=== PATIENT | female | born 1945 | race Caucasian/White ===

== ENCOUNTER → 2016-11-13 | Outpatient (CLI) | payer MEDICARE, OTHER ==
--- NOTE | 2016-11-14 10:06 | MM ---
Reason for exam: screening (asymptomatic). Last mammogram was performed 6 years and 8 months ago. History: Patient is postmenopausal. Family history of breast cancer in sister at age 59 and breast cancer in mother at age 80. Physical Findings: A clinical breast exam by your physician is recommended on an annual basis and results should be correlated with mammographic findings. MG 3D Screening Mammo W/Cad Bilateral CC and MLO view(s) were taken. Prior study comparison: March 06, 2010, bilateral digital screening mammogram. September 07, 2007, bilateral screening mammogram w/CAD. The breast tissue is extremely dense which could obscure a lesion on mammography. Focal asymmetry inner left breast CC view is stable. No significant changes when compared with prior studies. ASSESSMENT: Benign, BI-RAD 2 RECOMMENDATION: Routine screening mammogram of both breasts in 1 year.
== END | disposition home or self-care (01) ==
LOC: RADMAMWWP 11:12
PROVIDERS: ATTEND Family Medicine
DX: Z12.31 Encounter for screening mammogram for malignant neoplasm of breast (principal)
CPT/HCPCS: 77063; G0202

== ENCOUNTER → 2018-03-10 | Outpatient (CLI) | payer MEDICARE, OTHER ==
--- NOTE | 2018-03-11 11:24 | BD ---
EXAMINATION TYPE: Axial Bone Density DATE OF EXAM: 03/10/2018 CLINICAL HISTORY: Osteoporosis screening Height: 65.5 inches Weight: 150 FRAX RISK QUESTIONS: Alcohol (3 or more units per day): no Family History (Parent hip fracture): mother broke femur about mid-shaft when walking Glucocorticoids (More than 3mos): no (Ex: prednisone, prednisolone, methylprednisolone, dexamethasone, and hydrocortisone). History of Fracture in Adulthood: foot Secondary Osteoporosis: 1. Type 1 Diabetes: no 2. Hyperthyroidism: no 3. Menopause before 45: no 4. Malnutrition: no 5. Chronic liver disease: no Rheumatoid Arthritis: no Current Tobacco Use: no RISK FACTORS HISTORY OF: Family History of Osteoporosis: yes, mother Active: yes Diet low in dairy products/other sources of calcium: no Postmenopausal woman: yes Take estrogen and/or progesterone medications: no Lost more than 2 inches in height since high school: patient states height may have been about 67.5 i nches at one time Frequent falls: no Poor Health: no Hyperparathyroidism: no Adrenal Insufficiency: no MEDICATIONS: Prednisone or other steroids: no Thyroid Medications: no Osteoporosis Medications: no Additional Medications: blood pressure meds, multivitamin Additional History: EXAM MEASUREMENTS: Bone mineral densitometry was performed using the [employer] System. Bone mineral density as measured about the Lumbar spine is: ----- L1-L4(G/cm2): 0.965 T Score Values are as follows: ----- L2: -2.2 ----- L3: -1.2 ----- L4: -1.6 ----- L1-L4: -1.8 Bone mineral density not previously done at this facility; previously done at physician office Bone mineral density about the R hip (g/cm2): 0.713 Bone mineral density about the L hip (g/cm2): 0.711 T Score values are as follows: -----R Neck: -2.3 -----L Neck: -2.4 -----R Total: -2.1 -----L Total: -2.1 Bone mineral density not previously done at this facility; previously done at physician office IMPRESSION: Osteopenia (T Score between -2.5 and -1). Values approach osteoporosis with regards to the bilateral hips. There is slightly increased risk of fracture and the patient may be considered for treatment. Re-Screen 2-5 years. NOTE: T-SCORE=SD OF THE YOUNG ADULT MEAN.
--- NOTE | 2018-03-11 13:35 | MM ---
Reason for exam: screening (asymptomatic). Last mammogram was performed 1 year and 4 months ago. History: Patient is postmenopausal. Family history of breast cancer in sister at age 59 and breast cancer in mother at age 80. Physical Findings: A clinical breast exam by your physician is recommended on an annual basis and results should be correlated with mammographic findings. MG 3D Screening Mammo W/Cad Bilateral CC and MLO view(s) were taken. Prior study comparison: November 13, 2016, bilateral MG 3d screening mammo w/cad. March 06, 2010, bilateral digital screening mammogram. The breast tissue is extremely dense which could obscure a lesion on mammography. No suspicious abnormality. No significant changes when compared with prior studies. ASSESSMENT: Negative, BI-RAD 1 RECOMMENDATION: Routine screening mammogram of both breasts in 1 year.
== END | disposition home or self-care (01) ==
LOC: RADMAMWWP 12:14
PROVIDERS: ATTEND Family Medicine
DX: Z12.31 Encounter for screening mammogram for malignant neoplasm of breast (principal); M81.0 Age-related osteoporosis without current pathological fracture
CPT/HCPCS: 77063; 77067; 77080

== ENCOUNTER → 2021-01-08 | Outpatient (CLI) | payer MEDICARE, OTHER ==
--- NOTE | 2021-01-08 12:50 | US ---
EXAMINATION TYPE: US axilla RT DATE OF EXAM: 01/08/2021 COMPARISON: NONE CLINICAL HISTORY: 75-year-old female r22.2 mass, swelling. Palpable lymph node felt by patient in rig ht axilla. Overhauler notes: 2nd vaccine given January 03 TECHNIQUE: Targeted ultrasound examination of the right axilla the site of palpable abnormality. FINDINGS: Overhauler notes: Soft tissue scan of right axilla produced multiple lymph nodes. Largest = 1.2 x 1. 0 x 0.8cm, cortical thickness of 4 mm. IMPRESSION: Numerous mildly thickened, prominent but nonenlarged lymph nodes in the right axilla. Findings likely reactive, possibly even reactive to recent COVID vaccination. Recommend follow-up ultrasound in 6-8 weeks to reassess.
== END | disposition home or self-care (01) ==
LOC: RADUSWWP 07:40
PROVIDERS: ATTEND Family Medicine
DX: I89.8 Other specified noninfective disorders of lymphatic vessels and lymph nodes (principal)

== ENCOUNTER → 2021-01-08 | Outpatient (CLI) | payer MEDICARE, OTHER ==
--- NOTE | 2021-01-09 14:46 | MM ---
Reason for exam: screening (asymptomatic). Last mammogram was performed 2 years and 10 months ago. History: Patient is postmenopausal and history of other cancer. Family history of breast cancer in sister at age 59 and breast cancer in mother at age 80. Physical Findings: A clinical breast exam by your physician is recommended on an annual basis and results should be correlated with mammographic findings. MG 3D Screening Mammo W/Cad Bilateral CC and MLO view(s) were taken. Prior study comparison: March 10, 2018, bilateral MG 3d screening mammo w/cad. November 13, 2016, bilateral MG 3d screening mammo w/cad. The breast tissue is extremely dense which could obscure a lesion on mammography. There is no discrete abnormality. No significant changes when compared with prior studies. ASSESSMENT: Negative, BI-RAD 1 RECOMMENDATION: Routine screening mammogram of both breasts in 1 year.
== END | disposition home or self-care (01) ==
LOC: RADMAMWWP 07:37
PROVIDERS: ATTEND Family Medicine
DX: Z12.31 Encounter for screening mammogram for malignant neoplasm of breast (principal); Z78.0 Asymptomatic menopausal state; Z80.3 Family history of malignant neoplasm of breast
CPT/HCPCS: 77063; 77067

== ENCOUNTER → 2021-01-18 | Outpatient (CLI) | payer MEDICARE, OTHER ==
--- NOTE | 2021-01-20 13:42 | BD ---
EXAMINATION TYPE: Axial Bone Density DATE OF EXAM: 01/18/2021 COMPARISON: 03/10/2018 CLINICAL HISTORY: 75-year-old female post menopausal screening Height: 64.7 IN Weight: 147 LBS FRAX RISK QUESTIONS: History of Fracture in Adulthood: FINGER AGE 74 RISK FACTORS HISTORY OF: Family History of Osteoporosis: YES SISTER Active: YES Postmenopausal woman: AGE 60 MEDICATIONS: Additional Medications: GLUCOSAMINE CHONDROITIN, VIT D, CALCIUM, EXAM MEASUREMENTS: Bone mineral densitometry was performed using the [employer] System. Bone mineral density as measured about the Lumbar spine is: ----- L1-L4(G/cm2): 0.932 T Score Values are as follows: ----- L2: -2.0 ----- L3: -1.5 ----- L4: -2.2 ----- L1-L4: -2.1 Bone mineral density has: Decreased -2.9% since study of: 03/10/2018 Bone mineral density about the R hip (g/cm2): 0.701 Bone mineral density about the L hip (g/cm2): 0.724 T Score values are as follows: -----R Neck: -2.4 -----L Neck: -2.3 -----R Total: -2.2 -----L Total: -2.1 Bone mineral density has: Decreased -1.2% since study of: 03/10/2018 IMPRESSION: Osteopenia (T Score between -2.5 and -1). Note that some of the measurements are bordering on osteop orosis such as at the right hip. There is slightly increased risk of fracture and the patient may be considered for treatment. Re-Screen 2-5 years. NOTE: T-SCORE=SD OF THE YOUNG ADULT MEAN.
== END | disposition home or self-care (01) ==
LOC: RADBDWWP 08:04
PROVIDERS: ATTEND Family Medicine
DX: M81.0 Age-related osteoporosis without current pathological fracture (principal); M85.80 Other specified disorders of bone density and structure, unspecified site
CPT/HCPCS: 77080

== ENCOUNTER → 2021-03-01 | Outpatient (CLI) | payer MEDICARE ==
--- NOTE | 2021-03-01 11:50 | US ---
EXAMINATION TYPE: US axilla RT DATE OF EXAM: 03/01/2021 COMPARISON: 01/08/2021 CLINICAL HISTORY: R93.89 Abnormal findings on diagnostic imaging of other spec. 75-year-old female wi th palpable lymph node in the right axilla. Second vaccine was given January 03. lymph node right axilla = 1.2 x 0.4 x 1.0cm The lymph node in the right axilla currently measures 1.2 x 0.4 x 1.0 cm. The cortex is not thickened measuring 2 mm. There is a fatty hilum. IMPRESSION: 1. 1.2 cm lymph node appears reactive, benign-appearing. Previously the cortex appears thickened but does not appear thickened today. This is most likely reactive, benign-appearing. Continued clinical f ollow-up could be obtained. Return to imaging as clinically indicated.
== END | disposition home or self-care (01) ==
LOC: RADUSWWP 10:12
PROVIDERS: ATTEND Family Medicine
DX: R59.0 Localized enlarged lymph nodes (principal); Z23 Encounter for immunization

== ENCOUNTER 2021-12-29 09:07 | Inpatient (IN) | payer MEDICARE ==
[2021-12-29] MEDS ORDERED: SODIUM CHLORIDE 0.9% 1,000 ML IV STA (09:31)
[2021-12-29] MEDS ORDERED: ONDANSETRON 4 MG/2 ML VIAL IVP STA (09:31)
[2021-12-29] MEDS ORDERED: HYDROmorphone 0.5 MG/0.5 ML SYRINGE IVP STA (09:31)
--- NOTE | 2021-12-29 09:40 | ED ---
Abdominal Pain HPI - General Chief Complaint: Abdominal Pain Stated Complaint: abd & back pain Time Seen by Provider: 12/29/21 09:25 Source: patient, EMS, RN notes reviewed Mode of arrival: EMS Limitations: no limitations - History of Present Illness Initial Comments: This is 76-year-old female presenting with friend via EMS chief complaint of abdominal pain. Patient states that she started having some right-sided back pain which then progressed to right-sided abdominal pain, epigastric pain. She states is severe she been very nauseated states she did not have any vomiting prior to arriving by has been having multiple episodes of emesis since she presented to the emergency department. Patient states she had hernia repair when she was child but denies any recent alternatives. No chest pain no headache or dizziness. Patient states pain is unbearable. - Related Data Allergies Allergy/AdvReac Type Severity Reaction Status Date / Time acetaminophen [From Lortab] AdvReac Nausea & Verified 12/29/21 09:15 Vomiting ampicillin AdvReac Rash/Hives Verified 12/29/21 09:15 codeine AdvReac Nausea & Verified 12/29/21 09:15 Vomiting hydrocodone [From Lortab] AdvReac Nausea & Verified 12/29/21 09:15 Vomiting meperidine [From Demerol] AdvReac Nausea & Verified 12/29/21 09:15 Vomiting soap AdvReac Itching Verified 12/29/21 09:15 sulfamethoxazole AdvReac Rash/Hives Verified 12/29/21 09:15 [From Bactrim] trimethoprim [From Bactrim] AdvReac Rash/Hives Verified 12/29/21 09:15 Review of Systems ROS Statement: Those systems with pertinent positive or pertinent negative responses have been documented in the HPI. ROS Other: All systems not noted in ROS Statement are negative. Past Medical History Past Medical History: Cancer, Hypertension Additional Past Medical History / Comment(s): Tachycardia, skin cancer History of Any Multi-Drug Resistant Organisms: None Reported Past Surgical History: Hernia Repair, Tonsillectomy Past Psychological History: No Psychological Hx Reported Smoking Status: Never smoker Past Alcohol Use History: None Reported Past Drug Use History: None Reported General Exam Limitations: no limitations General appearance: alert, in no apparent distress Head exam: Present: atraumatic, normocephalic, normal inspection Eye exam: Present: normal appearance, PERRL, EOMI. Absent: scleral icterus, conjunctival injection, periorbital swelling ENT exam: Present: normal exam, normal oropharynx, mucous membranes moist Neck exam: Present: normal inspection, full ROM. Absent: tenderness, meningismus, lymphadenopathy Respiratory exam: Present: normal lung sounds bilaterally. Absent: respiratory distress, wheezes, rales, rhonchi, stridor Cardiovascular Exam: Present: regular rate, normal rhythm, normal heart sounds. Absent: systolic murmur, diastolic murmur, rubs, gallop, clicks GI/Abdominal exam: Present: soft, tenderness (Moderate right upper quadrant tenderness, epigastric tenderness), normal bowel sounds. Absent: distended, guarding, rebound, rigid Back exam: Present: CVA tenderness (R). Absent: CVA tenderness (L) Neurological exam: Present: alert, oriented X3 Skin exam: Present: warm, dry, intact, normal color. Absent: rash Course Vital Signs 12/29/21 09:08 Temperature 98.8 F Pulse Rate 89 Respiratory 20 Rate Blood Pressure 148/77 O2 Sat by Pulse 100 Oximetry Medical Decision Making - Medical Decision Making Ultrasound, as reviewed patient has evidence of gallstone pancreatitis. Patie nt's, bile duct is within normal, bilirubin normal. I discussed case with who accepts admission recommends fluid hydration, nothing by mouth, pain control, medicine consult. - Lab Data Result diagrams: 12/29/21 10:25 12/29/21 10:25 Lab Results 12/29/21 12/29/21 12/29/21 Range/Units 09:55 10:25 10:25 WBC 8.4 (3.8-10.6) k/uL RBC 3.69 L (3.80-5.40) m/uL Hgb 11.7 (11.4-16.0) gm/dL Hct 34.4 (34.0-46.0) % MCV 93.3 (80.0-100.0) fL MCH 31.7 (25.0-35.0) pg MCHC 34.0 (31.0-37.0) g/dL RDW 13.5 (11.5-15.5) % Plt Count 226 (150-450) k/uL MPV 6.5 Neutrophils % 94 % Lymphocytes % 3 % Monocytes % 3 % Eosinophils % 1 % Basophils % 0 % Neutrophils # 7.9 H (1.3-7.7) k/uL Lymphocytes # 0.2 L (1.0-4.8) k/uL Monocytes # 0.2 (0-1.0) k/uL Eosinophils # 0.1 (0-0.7) k/uL Basophils # 0.0 (0-0.2) k/uL Sodium 137 (137-145) mmol/L Potassium 3.8 (3.5-5.1) mmol/L Chloride 109 H (98-107) mmol/L Carbon Dioxide 24 (22-30) mmol/L Anion Gap 4 mmol/L BUN 12 (7-17) mg/dL Creatinine 0.63 (0.52-1.04) mg/dL Est GFR (CKD-EPI)AfAm >90 (>60 ml/min/1.73 sqM) Est GFR (CKD-EPI)NonAf 87 (>60 ml/min/1.73 sqM) Glucose 124 H (74-99) mg/dL Plasma Lactic Acid Piyush 2.3 H* (0.7-2.0) mmol/L Calcium 8.3 L (8.4-10.2) mg/dL Total Bilirubin 1.2 (0.2-1.3) mg/dL AST 244 H (14-36) U/L ALT 131 H (4-34) U/L Alkaline Phosphatase 113 (38-126) U/L Troponin I (0.000-0.034) ng/mL Total Protein 6.6 (6.3-8.2) g/dL Albumin 3.7 (3.5-5.0) g/dL Amylase 197 H (30-110) U/L Lipase 2499 H (23-300) U/L 12/29/21 Range/Units 10:25 WBC (3.8-10.6) k/uL RBC (3.80-5.40) m/uL Hgb (11.4-16.0) gm/dL Hct (34.0-46.0) % MCV (80.0-100.0) fL MCH (25.0-35.0) pg MCHC (31.0-37.0) g/dL RDW (11.5-15.5) % Plt Count (150-450) k/uL MPV Neutrophils % % Lymphocytes % % Monocytes % % Eosinophils % % Basophils % % Neutrophils # (1.3-7.7) k/uL Lymphocytes # (1.0-4.8) k/uL Monocytes # (0-1.0) k/uL Eosinophils # (0-0.7) k/uL Basophils # (0-0.2) k/uL Sodium (137-145) mmol/L Potassium (3.5-5.1) mmol/L Chloride (98-107) mmol/L Carbon Dioxide (22-30) mmol/L Anion Gap mmol/L BUN (7-17) mg/dL Creatinine (0.52-1.04) mg/dL Est GFR (CKD-EPI)AfAm (>60 ml/min/1.73 sqM) Est GFR (CKD-EPI)NonAf (>60 ml/min/1.73 sqM) Glucose (74-99) mg/dL Plasma Lactic Acid Piyush (0.7-2.0) mmol/L Calcium (8.4-10.2) mg/dL Total Bilirubin (0.2-1.3) mg/dL AST (14-36) U/L ALT (4-34) U/L Alkaline Phosphatase (38-126) U/L Troponin I <0.012 (0.000-0.034) ng/mL Total Protein (6.3-8.2) g/dL Albumin (3.5-5.0) g/dL Amylase (30-110) U/L Lipase (23-300) U/L Disposition Clinical Impression: Acute gallstone pancreatitis Disposition: ADMITTED IP TO THIS HOSP Condition: Fair Referrals: Sierra Hanson MD [Primary Care Provider] - 1-2 days
--- NOTE | 2021-12-29 10:52 | US ---
EXAMINATION TYPE: US gallbladder DATE OF EXAM: 12/29/2021 COMPARISON: NONE CLINICAL HISTORY: pain. epigastric pain, RUQ pain, back pain, nausea EXAM MEASUREMENTS: Liver Length: 16.6 cm Gallbladder Wall: 0.3 cm CBD: 0.2 cm Right Kidney: 10.0 x 3.8 x 4.4 cm Pancreas: limited evaluation due to overlying bowel Liver: cystic areas noted, largest 2 = 3.7 x 4.3 x 4.1cm and 3.6 x 2.5 x 3.8cm Gallbladder: small stones noted Evidence for sonographic Nunez's sign: no CBD: wnl as visualized Right Kidney: no evidence of hydronephrosis Adjacent clustered thin-walled cysts in the right hepatic dome. Multiple mobile tiny intraluminal gal lstones. No surrounding fluid or abnormal wall thickening. Sonographic Nunez sign negative. IMPRESSION: Small gallstones without convincing sector ultrasound evidence for acute cholecystitis. C onsider HIDA scan to further evaluate if clinical concern remains present.
[2021-12-29 11:02] LABS: ALT 131 U/L (4-34); AST 244 U/L (14-36); African American GFR (CKD) >90 (>60 ml/min/1.73 sqM); Albumin 3.7 g/dL (3.5-5.0); Alkaline Phosphatase 113 U/L (38-126); Amylase 197 U/L (30-110); Anion Gap 4 mmol/L; Blood Urea Nitrogen 12 mg/dL (7-17); Calcium 8.3 mg/dL (8.4-10.2); Carbon Dioxide 24 mmol/L (22-30); Chloride 109 mmol/L (98-107); Glucose 124 mg/dL (74-99); Non-African American GFR(CKD) 87 (>60 ml/min/1.73 sqM); Potassium 3.8 mmol/L (3.5-5.1); Sodium 137 mmol/L (137-145); Total Bilirubin 1.2 mg/dL (0.2-1.3); Total Protein 6.6 g/dL (6.3-8.2)
[2021-12-29 11:10] LABS: Basophils % (A) 0 %; Eosinophils # (A) 0.1 k/uL (0-0.7); Eosinophils % (A) 1 %; HCT 34.4 % (34.0-46.0); HGB 11.7 gm/dL (11.4-16.0); Lymphocytes # (A) 0.2 k/uL (1.0-4.8); Lymphocytes % (A) 3 %; MCH 31.7 pg (25.0-35.0); MCV 93.3 fL (80.0-100.0); Mean Platelet Volume 6.5; Monocytes # (A) 0.2 k/uL (0-1.0); Monocytes % (A) 3 %; Neutrophils # (A) 7.9 k/uL (1.3-7.7); Neutrophils % (A) 94 %; Platelet Count 226 k/uL (150-450); RBC 3.69 m/uL (3.80-5.40); RDW 13.5 % (11.5-15.5); WBC 8.4 k/uL (3.8-10.6)
[2021-12-29 11:23] LABS: Lipase 2499 U/L (23-300)
[2021-12-29] MEDS ORDERED: metroNIDAZOLE-NS PMX 500 MG in SALINE 1 100ML.BAG IVPB STA (11:35)
[2021-12-29] MEDS ORDERED: HYDROmorphone 0.5 MG/0.5 ML SYRINGE IVP PRN (11:38)
[2021-12-29] MEDS ORDERED: NALOXONE 0.4 MG/ML 1 ML VIAL IV PRN (11:38)
[2021-12-29] MEDS ORDERED: ONDANSETRON 4 MG/2 ML VIAL IVP PRN (11:38)
[2021-12-29 12:29] LABS: Appearance,Urine Clear (Clear); Bacteria,Urine Rare /hpf; Bilirubin,Urine Negative (Negative); Blood,Urine Moderate (Negative); Color,Urine Yellow; Glucose,Urine (UA) Negative (Negative); Ketones,Urine Negative (Negative); Leukocyte Esterase,Urine Negative (Negative); Mucus,Urine Rare /hpf; Nitrite,Urine Negative (Negative); PH, Urine 5.5 (5.0-8.0); Protein,Urine Negative (Negative); RBC,Urine 28 /hpf (0-5); Specific Gravity,Urine 1.015 (1.001-1.035); Urobilinogen,Urine <2.0 mg/dL (<2.0); WBC,Urine 1 /hpf (0-5)
[2021-12-29] MEDS: SODIUM CHLORIDE 0.9% 1,000 ML IV SCH (12:30)
[2021-12-29] MEDS: metroNIDAZOLE-NS PMX 500 MG in SALINE 1 100ML.BAG IVPB SCH (20:35)
[2021-12-30] MEDS: SODIUM CHLORIDE 0.9% 1,000 ML IV SCH ×2 (01:18→16:14)
[2021-12-30] MEDS: metroNIDAZOLE-NS PMX 500 MG in SALINE 1 100ML.BAG IVPB SCH ×2 (04:36→12:52)
--- NOTE | 2021-12-30 10:54 | P.GSHP ---
History of Present Illness H&P Date: 12/30/21 CHIEF COMPLAINT: Epigastric abdominal pain HISTORY OF PRESENT ILLNESS: This is a 76-year-old female who presented to the hospital for complaints of abdominal pain. Patient reports the pain started in the epigastric area and radiated to the right upper quadrant and around to the back that started yesterday. She was having nausea and vomiting. The pain became very severe and had to call EMS. Patient does have a history of gallstones. Patient does report having a right inguinal hernia repair as a child. She denies any fever chills or sweats. She denies any cardiac history. PAST MEDICAL HISTORY: Hypertension, skin cancer PAST SURGICAL HISTORY: See list. MEDICATIONS: See list. ALLERGIES: See list. SOCIAL HISTORY: No illicit drug use. REVIEW OF SYSTEMS: CONSTITUTIONAL: Denies fever or chills. HEENT: Denies blurred vision, vision changes, or eye pain. Denies hemoptysis CARDIOVASCULAR: Denies chest pain or pressure. RESPIRATORY: No shortness of breath. GASTROINTESTINAL: See HPI for pertinent findings HEMATOLOGIC: Denies bleeding disorders. GENITOURINARY: Denies any blood in urine or increased urinary frequency. SKIN: Denies pruitis. Denies rash. PHYSICAL EXAM: VITAL SIGNS: Reviewed GENERAL: Well-developed in no acute distress. HEENT: No sclera icterus. Extraocular movements grossly intact. Moist buccal mucosa. Head is atraumatic, normocephalic. No nasal drainage. ABDOMEN: Soft. Nondistended. Mild tenderness to palpation in the epigastric and right upper quadrant area NEUROLOGIC: Alert and oriented. Cranial nerves II through XII grossly intact. LABORATORY DATA: WBC 8.4 hemoglobin 11.7 platelets 226 Sodium 137 potassium 3.8 BUN 12 creatinine 0.63 Lactic acid 2.3- 1.0 Total bilirubin 1.2 AST 244 ALT 131 Lipase 2499 amylase 197 IMAGING: Abdominal Ultrasound shows small gallstones without convincing ultrasound evidence for acute cholecystitis. ASSESSMENT: 1. Acute Gallstone pancreatitis 2. Cholelithiasis PLAN: -Further recommendations forthcoming surgeon -Keep patient nothing by mouth -Repeat LFTs and lipase in AM -Continue IV fluids -Continue antibiotics -Continue pain medication and antiemetics as needed -Medicine service consulted for medical management Physician Tar Worker note has been reviewed by physician. Signing provider agrees with the documented findings, assessment, and plan of care. Past Medical History Past Medical History: Cancer, Hypertension Additional Past Medical History / Comment(s): Tachycardia, skin cancer History of Any Multi-Drug Resistant Organisms: None Reported Past Surgical History: Hernia Repair, Tonsillectomy Additional Past Anesthesia/Blood Transfusion Reaction / Comment(s): irregular heart rate with general anesthestic Past Psychological History: No Psychological Hx Reported Smoking Status: Never smoker Past Alcohol Use History: None Reported Past Drug Use History: None Reported Medications and Allergies Home Medications Medication Instructions Recorded Confirmed Type Bone Op 1 tab PO DAILY 12/29/21 12/29/21 History Cholecalciferol [Vitamin D3 (25 25 mcg PO DAILY 12/29/21 12/29/21 History Mcg = 1000 Iu)] Flaxseed Oil 1,000 mg PO DAILY 12/29/21 12/29/21 History Garlic 100 mg PO DAILY 12/29/21 12/29/21 History Glucosamine HCl/Chondroitin Matos 1 cap PO DAILY 12/29/21 12/29/21 History [Glucosamine-Chondroitin Cap] L.acidoph,Paracasei, B.lactis 1 cap PO DAILY 12/29/21 12/29/21 History [Probiotic] Soledad-3 Fatty Acids/Fish Oil [Fish 1 cap PO DAILY 12/29/21 12/29/21 History Oil 1,000 mg Softgel] Ubidecarenone [Co Q-10] 100 mg PO DAILY 12/29/21 12/29/21 History Zinc 50 mg PO DAILY 12/29/21 12/29/21 History Allergies Allergy/AdvReac Type Severity Reaction Status Date / Time acetaminophen [From Lortab] AdvReac Nausea & Verified 12/29/21 12:14 Vomiting ampicillin AdvReac Rash/Hives Verified 12/29/21 12:14 codeine AdvReac Nausea & Verified 12/29/21 12:14 Vomiting hydrocodone [From Lortab] AdvReac Nausea & Verified 12/29/21 12:14 Vomiting meperidine [From Demerol] AdvReac Nausea & Verified 12/29/21 12:14 Vomiting soap AdvReac Itching Verified 12/29/21 12:14 sulfamethoxazole AdvReac Rash/Hives Verified 12/29/21 12:14 [From Bactrim] trimethoprim [From Bactrim] AdvReac Rash/Hives Verified 12/29/21 12:14 Surgical - Exam Vital Signs Temp Pulse Resp BP Pulse Ox 98.8 F 89 20 148/77 100 12/29/21 09:08 12/29/21 09:08 12/29/21 09:08 12/29/21 09:08 12/29/21 09:08 Results - Labs 12/30/21 10:26 12/30/21 10:26 Abnormal Lab Results - Last 24 Hours (Table) 12/29/21 12/29/21 12/29/21 Range/Units 10:25 10:25 12:17 RBC 3.69 L (3.80-5.40) m/uL Neutrophils # 7.9 H (1.3-7.7) k/uL Lymphocytes # 0.2 L (1.0-4.8) k/uL Chloride 109 H (98-107) mmol/L Glucose 124 H (74-99) mg/dL Calcium 8.3 L (8.4-10.2) mg/dL AST 244 H (14-36) U/L ALT 131 H (4-34) U/L Amylase 197 H (30-110) U/L Lipase 2499 H (23-300) U/L Urine Blood Moderate H (Negative) Urine RBC 28 H (0-5) /hpf Urine Bacteria Rare H (None) /hpf Urine Mucus Rare H (None) /hpf Microbiology - Last 24 Hours (Table) 12/29/21 12:08 Blood Culture Gram Stain - Preliminary Blood 12/29/21 12:08 Blood Culture - Final Blood Diabetes panel 12/29/21 Range/Units 10:25 Sodium 137 (137-145) mmol/L Potassium 3.8 (3.5-5.1) mmol/L Chloride 109 H (98-107) mmol/L Carbon Dioxide 24 (22-30) mmol/L BUN 12 (7-17) mg/dL Creatinine 0.63 (0.52-1.04) mg/dL Glucose 124 H (74-99) mg/dL Calcium 8.3 L (8.4-10.2) mg/dL AST 244 H (14-36) U/L ALT 131 H (4-34) U/L Alkaline Phosphatase 113 (38-126) U/L Total Protein 6.6 (6.3-8.2) g/dL Albumin 3.7 (3.5-5.0) g/dL Calcium panel 12/29/21 Range/Units 10:25 Calcium 8.3 L (8.4-10.2) mg/dL Albumin 3.7 (3.5-5.0) g/dL Pituitary panel 12/29/21 Range/Units 10:25 Sodium 137 (137-145) mmol/L Potassium 3.8 (3.5-5.1) mmol/L Chloride 109 H (98-107) mmol/L Carbon Dioxide 24 (22-30) mmol/L BUN 12 (7-17) mg/dL Creatinine 0.63 (0.52-1.04) mg/dL Glucose 124 H (74-99) mg/dL Calcium 8.3 L (8.4-10.2) mg/dL Adrenal panel 12/29/21 Range/Units 10:25 Sodium 137 (137-145) mmol/L Potassium 3.8 (3.5-5.1) mmol/L Chloride 109 H (98-107) mmol/L Carbon Dioxide 24 (22-30) mmol/L BUN 12 (7-17) mg/dL Creatinine 0.63 (0.52-1.04) mg/dL Glucose 124 H (74-99) mg/dL Calcium 8.3 L (8.4-10.2) mg/dL Total Bilirubin 1.2 (0.2-1.3) mg/dL AST 244 H (14-36) U/L ALT 131 H (4-34) U/L Alkaline Phosphatase 113 (38-126) U/L Total Protein 6.6 (6.3-8.2) g/dL Albumin 3.7 (3.5-5.0) g/dL
[2021-12-30 11:05] LABS: Basophils % (A) 0 %; Eosinophils % (A) 0 %; HGB 10.6 gm/dL (11.4-16.0); Lymphocytes # (A) 0.9 k/uL (1.0-4.8); Lymphocytes % (A) 13 %; MCH 31.4 pg (25.0-35.0); MCHC 32.3 g/dL (31.0-37.0); MCV 97.1 fL (80.0-100.0); Mean Platelet Volume 7.1; Monocytes # (A) 0.3 k/uL (0-1.0); Monocytes % (A) 4 %; Neutrophils # (A) 5.2 k/uL (1.3-7.7); Neutrophils % (A) 81 %; Platelet Count 182 k/uL (150-450); RBC 3.39 m/uL (3.80-5.40); RDW 13.1 % (11.5-15.5); WBC 6.4 k/uL (3.8-10.6)
[2021-12-30 11:21] LABS: ALT 125 U/L (4-34); AST 97 U/L (14-36); African American GFR (CKD) >90 (>60 ml/min/1.73 sqM); Albumin 3.1 g/dL (3.5-5.0); Albumin/Globulin Ratio 1.1; Alkaline Phosphatase 85 U/L (38-126); Amylase 179 U/L (30-110); Anion Gap 4 mmol/L; Blood Urea Nitrogen 11 mg/dL (7-17); Calcium 8.2 mg/dL (8.4-10.2); Carbon Dioxide 24 mmol/L (22-30); Chloride 109 mmol/L (98-107); Globulin 2.8 g/dL; Glucose 91 mg/dL (74-99); Non-African American GFR(CKD) 81 (>60 ml/min/1.73 sqM); Potassium 3.6 mmol/L (3.5-5.1); Sodium 137 mmol/L (137-145); Total Bilirubin 0.7 mg/dL (0.2-1.3); Total Protein 5.9 g/dL (6.3-8.2)
[2021-12-30 11:29] LABS: Lipase 2086 U/L (23-300)
[2021-12-30] MEDS: PANTOPRAZOLE 40 MG/10 ML VIAL IVP SCH (16:08)
[2021-12-30] MEDS ORDERED: LACTATED RINGERS 1,000 ML IV SCH (17:00)
--- NOTE | 2021-12-30 17:02 | P.CONS ---
History of Present Illness - Reason for Consult E. coli bacteremia - History of Present Illness Patient is an 76-year-old female came with sharp severe epigastric abdominal pain found to have an keratitis patient does have gallstones patient appears to have gallstone pancreatitis patient does have elevated AST and ALT which are coming down. Patient is now found to be bacteremic. Patient is already on Ro cephin. Patient has E. coli. Will repeat blood cultures today and tomorrow. Patient is admitted to general surgery. Patient is presently hemodynamically stable. REVIEW OF SYSTEMS: CONSTITUTIONAL: No fever, no malaise, no fatigue. HEENT: No recent visual problems or hearing problems. Denied any sore throat. CARDIOVASCULAR: No chest pain, orthopnea, PND, no palpitations, no syncope. PULMONARY: No shortness of breath, no cough, no hemoptysis. GASTROINTESTINAL: No diarrhea, no nausea, no vomiting, no abdominal pain. NEUROLOGICAL: No headaches, no weakness, no numbness. HEMATOLOGICAL: Denies any bleeding or petechiae. GENITOURINARY: Denies any burning micturition, frequency, or urgency. MUSCULOSKELETAL/RHEUMATOLOGICAL: Denies any joint pain, swelling, or any muscle pain. ENDOCRINE: Denies any polyuria or polydipsia. The rest of the 14-point review of systems is negative. PHYSICAL EXAMINATION: GENERAL: The patient is alert and oriented x3, not in any acute distress. Well developed, well nourished. HEENT: Pupils are round and equally reacting to light. EOMI. No scleral icterus. No conjunctival pallor. Normocephalic, atraumatic. No pharyngeal erythema. No thyromegaly. CARDIOVASCULAR: S1 and S2 present. No murmurs, rubs, or gallops. PULMONARY: Chest is clear to auscultation, no wheezing or crackles. ABDOMEN: Soft, nontender, nondistended, normoactive bowel sounds. No palpable organomegaly. MUSCULOSKELETAL: No joint swelling or deformity. EXTREMITIES: No cyanosis, clubbing, or pedal edema. NEUROLOGICAL: Gross neurological examination did not reveal any focal deficits. SKIN: No rashes. Assessment and plan -Sepsis and bacteremia secondary to cholelithiasis and possibility of cholecystitis and patient has E. coli bacteremia continue with Rocephin we'll repeat blood cultures today and tomorrow to document the clearance of bacteremia. Metronidazole can be discontinued since patient has a E. coli in the blood. -Gallstone pancreatitis patient is presently nothing by mouth continue with IV fluids patient is still having some pain but significant improved compared to yesterday -Cholecystitis -Elevated liver enzymes possibly of choledocholithiasis is low as liver enzymes are coming down. -Hypertension DVT prophylaxis: Subcutaneous heparin Past Medical History Past Medical History: Cancer, Hypertension Additional Past Medical History / Comment(s): Tachycardia, skin cancer History of Any Multi-Drug Resistant Organisms: None Reported Past Surgical History: Hernia Repair, Tonsillectomy Additional Past Anesthesia/Blood Transfusion Reaction / Comm: irregular heart rate with general anesthestic Past Psychological History: No Psychological Hx Reported Smoking Status: Never smoker Past Alcohol Use History: None Reported Past Drug Use History: None Reported Medications and Allergies Home Medications Medication Instructions Recorded Confirmed Type Bone Op 1 tab PO DAILY 12/29/21 12/29/21 History Cholecalciferol [Vitamin D3 (25 25 mcg PO DAILY 12/29/21 12/29/21 History Mcg = 1000 Iu)] Flaxseed Oil 1,000 mg PO DAILY 12/29/21 12/29/21 History Garlic 100 mg PO DAILY 12/29/21 12/29/21 History Glucosamine HCl/Chondroitin Matos 1 cap PO DAILY 12/29/21 12/29/21 History [Glucosamine-Chondroitin Cap] L.acidoph,Paracasei, B.lactis 1 cap PO DAILY 12/29/21 12/29/21 History [Probiotic] [place]-3 Fatty Acids/Fish Oil [Fish 1 cap PO DAILY 12/29/21 12/29/21 History Oil 1,000 mg Softgel] Ubidecarenone [Co Q-10] 100 mg PO DAILY 12/29/21 12/29/21 History Zinc 50 mg PO DAILY 12/29/21 12/29/21 History Allergies Allergy/AdvReac Type Severity Reaction Status Date / Time acetaminophen [From Lortab] AdvReac Nausea & Verified 12/29/21 12:14 Vomiting ampicillin AdvReac Rash/Hives Verified 12/29/21 12:14 codeine AdvReac Nausea & Verified 12/29/21 12:14 Vomiting hydrocodone [From Lortab] AdvReac Nausea & Verified 12/29/21 12:14 Vomiting meperidine [From Demerol] AdvReac Nausea & Verified 12/29/21 12:14 Vomiting soap AdvReac Itching Verified 12/29/21 12:14 sulfamethoxazole AdvReac Rash/Hives Verified 12/29/21 12:14 [From Bactrim] trimethoprim [From Bactrim] AdvReac Rash/Hives Verified 12/29/21 12:14 Physical Exam Vitals: Vital Signs Temp Pulse Pulse Pulse Resp BP BP 12/30/21 12:38 98.1 F 53 L 16 122/58 12/30/21 04:36 98.0 F 61 16 108/66 12/29/21 20:00 98.9 F 63 18 107/63 12/29/21 19:08 98.5 F 12/29/21 18:00 59 L 18 108/62 Pulse Ox 12/30/21 12:38 99 12/30/21 04:36 92 L 12/29/21 20:00 95 12/29/21 19:08 12/29/21 18:00 98 Intake and Output 12/30/21 12/30/21 12/30/21 06:59 14:59 22:59 Intake Total 625 Balance 625 Intake: Intake, IV Titration 625 Amount Sodium Chloride 0.9% 1, 525 000 ml @ 75 mls/hr IV . [id number] [facility] Rx#:[id number] metroNIDAZOLE-NS PMX 500 100 mg In Saline 1 100ml.bag @ 100 mls/hr IVPB Q8H [facility] Rx#:[id number] Results CBC & Chem 7: 12/30/21 10:26 12/30/21 10:26 Labs: Abnormal Lab Results - Last 24 Hours (Table) 12/30/21 12/30/21 Range/Units 10:26 10:26 RBC 3.39 L (3.80-5.40) m/uL Hgb 10.6 L (11.4-16.0) gm/dL Hct 33.0 L (34.0-46.0) % Lymphocytes # 0.9 L (1.0-4.8) k/uL Chloride 109 H (98-107) mmol/L Calcium 8.2 L (8.4-10.2) mg/dL AST 97 H (14-36) U/L ALT 125 H (4-34) U/L Total Protein 5.9 L (6.3-8.2) g/dL Albumin 3.1 L (3.5-5.0) g/dL Amylase 179 H (30-110) U/L Lipase 2086 H (23-300) U/L Microbiology - Last 24 Hours (Table) 12/29/21 11:45 Blood Culture - Preliminary Blood No Growth after 24 hours 12/29/21 12:08 Blood Culture Gram Stain - Preliminary Blood Blood Culture - Preliminary Escherichia coli 12/29/21 12:08 Blood Culture - Final Blood
[2021-12-30] MEDS: DEXTROSE 5%-0.45% NACL 1,000 ML IV SCH (19:15)
[2021-12-30] MEDS: HEPARIN SODIUM,PORCINE/PF 5,000 UNIT/0.5 ML SYRINGE SQ SCH (19:18)
[2021-12-31] MEDS: DEXTROSE 5%-0.45% NACL 1,000 ML IV SCH ×3 (03:46→23:53)
[2021-12-31 09:32] LABS: HCT 33.3 % (37.2-46.3); HGB 10.8 g/dL (12.0-15.0); MCH 30.3 pg (27.0-32.0); MCHC 32.4 g/dL (32.0-37.0); MCV 93.5 fL (80.0-97.0); Mean Platelet Volume 8.8 fL (9.5-12.2); NRBC Per 100 WBC 0 /100 WBCS (0.0-0.0); Platelet Count 188 X 10*3/uL (140-440); RBC 3.56 X 10*6/uL (4.10-5.20); WBC 5.73 X 10*3/uL (4.50-10.00)
[2021-12-31 10:02] LABS: African American GFR (CKD) 97.5 (60.0-200.0); Albumin/Globulin Ratio 1.67 (1.60-3.17); Anion Gap 9.3 mmol/L (10.00-18.00); BUN/Creat Ratio 12.14 Ratio (12.00-20.00); Blood Urea Nitrogen 8.5 mg/dL (9.0-27.0); Calcium 8.8 mg/dL (8.7-10.3); Carbon Dioxide 23.7 mmol/L (20.0-27.5); Globulin 2.4 g/dL (1.6-3.3); Non-African American GFR(CKD) 84.2 (60.0-200.0); Potassium 3.5 mmol/L (3.5-5.5); Total Bilirubin 0.4 mg/dL (0.30-1.20); Total Protein 6.4 g/dL (6.2-8.2)
[2021-12-31] MEDS: HEPARIN SODIUM,PORCINE/PF 5,000 UNIT/0.5 ML SYRINGE SQ SCH ×2 (11:57→23:58)
[2021-12-31] MEDS: PANTOPRAZOLE 40 MG/10 ML VIAL IVP SCH (11:58)
--- NOTE | 2021-12-31 14:06 | P.PN ---
Subjective Progress Note Date: 12/31/21 CHIEF COMPLAINT: Epigastric abdominal pain HISTORY OF PRESENT ILLNESS: Patient has been consult for gallstone pancreatitis. Her epigastric pain is showing improvement. She reports just some mild tenderness. She denies any nausea or vomiting. She is having flatus and bowel movement. She did receive a fluid bolus and IV fluids were increased yesterday. Afebrile. WBC is 5.73 hemoglobin 10.8 platelets 188 sodium 139 potassium 3.5 creatinine 0.7 LFTs are trending down. Lipase is down from 2085 down to 408. Positive blood culture with E. coli PHYSICAL EXAM: VITAL SIGNS: Reviewed. GENERAL: Well-developed in no acute distress. HEENT: No sclera icterus. Extraocular movements grossly intact. Moist buccal mucosa. Head is atraumatic, normocephalic. ABDOMEN: Soft. Nondistended. Minimal tenderness with palpation of the epigastric area NEUROLOGIC: Alert and oriented. Cranial nerves II through XII grossly intact. ASSESSMENT: 1. Acute Gallstone pancreatitis 2. Cholelithiasis 3. Bacteremia PLAN: -Continue conservative management -At this time patient wants to hold off on any surgery -Advance diet to full liquids -Continue to monitor LFTs and lipase -Continue IV fluids -Continue antibiotics -Agree with consulting ID service regarding positive blood culture Physician Dental Practitioner note has been reviewed by physician. Signing provider agrees with the documented findings, assessment, and plan of care. Objective - Vital Signs Vital signs: Vital Signs Temp 98.5 F 12/31/21 13:32 Pulse 71 12/31/21 13:32 Resp 18 12/31/21 13:32 BP 139/77 12/31/21 13:32 Pulse Ox 100 12/31/21 13:32 Intake & Output 12/30/21 12/31/21 12/31/21 18:59 06:59 18:59 Intake Total 1000 Balance 1000 Intake: Intake, IV Titration 1000 Amount Dextrose 5%-0.45% NaCl 1, 1000 000 ml @ 125 mls/hr IV . Q8H [facility] Rx#:[id number] Other: Voiding Method Toilet Toilet # Voids 3 - Labs CBC & Chem 7: 12/31/21 05:25 12/31/21 05:25 Labs: Abnormal Lab Results - Last 24 Hours (Table) 12/31/21 12/31/21 Range/Units 05:25 05:25 RBC 3.56 L (4.10-5.20) X 10*6/uL Hgb 10.8 L (12.0-15.0) g/dL Hct 33.3 L (37.2-46.3) % MPV 8.8 L (9.5-12.2) fL Anion Gap 9.30 L (10.00-18.00) mmol/L BUN 8.5 L (9.0-27.0) mg/dL Glucose 118 H (70-110) mg/dL AST 59 H (13-35) U/L ALT 109 H (8-44) U/L Lipase 408 H (14-63) U/L Microbiology - Last 24 Hours (Table) 12/29/21 11:45 Blood Culture - Preliminary Blood No Growth after 24 hours 12/29/21 12:08 Blood Culture Gram Stain - Preliminary Blood Blood Culture - Preliminary Escherichia coli
[2021-12-31] MEDS ORDERED: metroNIDAZOLE-NS PMX 500 MG in SALINE 1 100ML.BAG IVPB SCH (16:00)
--- NOTE | 2021-12-31 16:08 | P.PN ---
Subjective Progress Note Date: 12/31/21 - Reason for Consult E. coli bacteremia - History of Present Illness Patient is an 76-year-old female came with sharp severe epigastric abdominal pain found to have an keratitis patient does have gallstones patient appears to have gallstone pancreatitis patient does have elevated AST and ALT which are coming down. Patient is now found to be bacteremic. Patient is already on Rocephin. Patient has E. coli. Will repeat blood cultures today and tomorrow. Patient is admitted to general surgery. Patient is presently hemodynamically stable. 12/31/2021 Patient is seen and evaluated in follow-up today and reports were abdominal pain improving. Patient was tentatively scheduled for possible laparoscopic cholecystectomy tomorrow although would like to follow-up in the outpatient setting. Patient is afebrile and WBC is within normal limits at 5.73. Hemoglobin is 10.8. BMP within normal limits. Lipase trending down and is currently 408 and amylase within normal limits at 103. Patient continues with bacteremia of E. coli and currently maintained on Rocephin and will consult infectious disease and repeat blood cultures. Patient is continued on IV antibiotics in the form of ceftriaxone and will discontinue Flagyl. Awaiting for clearance of bacteremia. Denies any chest pain, shortness of breath, or palpitations. Patient is afebrile. Patient diet being advanced to full liquids and will monitor for tolerance. Review of systems: Constitutional: No reports of fatigue, fever, or chills Cardiovascular: No reports of chest pain or palpitations Respiratory: No reports of shortness of breath or cough GI: No reports of nausea, vomiting, or diarrhea : No reports of dysuria or retention Neurovascular: No reports of weakness or numbness All medications have been reviewed Active Medications Heparin Sodium (Porcine) (Heparin Sodium,Porcine/Pf 5,000 Unit/0.5 Ml Syringe) 5,000 unit SQ Q12HR [facility] Last Admin: 12/31/21 11:57 Dose: Not Given Documented by: Hydromorphone HCl (Hydromorphone 0.5 Mg/0.5 Ml Syringe) 0.5 mg IVP Q3HR PRN PRN Reason: Moderate Pain Ceftriaxone Sodium 2 gm/ (Sodium Chloride) 50 mls @ 100 mls/hr IVPB Q24HR [facility]; Protocol Last Admin: 12/31/21 11:22 Dose: 100 mls/hr Documented by: Dextrose/Sodium Chloride (Dextrose 5%-1/2ns Iv Soln) 1,000 mls @ 125 mls/hr IV .Q8H [facility] Last Admin: 12/31/21 10:57 Dose: 125 mls/hr Documented by: Metronidazole 500 mg/ IV (Solution) 100 mls @ 100 mls/hr IVPB Q8HR [facility]; Protocol Naloxone HCl (Naloxone 0.4 Mg/Ml 1 Ml Vial) 0.2 mg IV Q2M PRN PRN Reason: Opioid Reversal Ondansetron HCl (Ondansetron 4 Mg/2 Ml Vial) 4 mg IVP Q8HR PRN PRN Reason: Nausea And Vomiting Pantoprazole Sodium (Pantoprazole 40 Mg/10 Ml Vial) 40 mg IVP DAILY [facility] Last Admin: 12/31/21 11:58 Dose: 40 mg Documented by: PHYSICAL EXAMINATION: GENERAL: The patient is alert and oriented x3, not in any acute distress. Well developed, well nourished. HEENT: Pupils are round and equally reacting to light. EOMI. No scleral icterus. No conjunctival pallor. Normocephalic, atraumatic. No pharyngeal erythema. No thyromegaly. CARDIOVASCULAR: S1 and S2 present. No murmurs, rubs, or gallops. PULMONARY: Chest is clear to auscultation, no wheezing or crackles. ABDOMEN: Soft, nontender, nondistended, normoactive bowel sounds. No palpable organomegaly. MUSCULOSKELETAL: No joint swelling or deformity. EXTREMITIES: No cyanosis, clubbing, or pedal edema. NEUROLOGICAL: Gross neurological examination did not reveal any focal deficits. SKIN: No rashes. Assessment and plan -Sepsis and bacteremia secondary to cholelithiasis and possibility of cholecys titis and patient has E. coli bacteremia continue with Rocephin, repeat blood cultures pending and will consult infectious disease and appreciate input and recommendations. Patient to continue on IV ceftriaxone and okay to discontinue Flagyl. -Gallstone pancreatitis, patient being started on diet and advancing per surgery recommendations and advanced to full liquids and will continue to monitor for tolerance. -Cholecystitis -Elevated liver enzymes possibly of choledocholithiasis is low as liver enzymes are coming down. -Hypertension -DVT prophylaxis: Subcutaneous heparin -GI prophylaxis -Full code Plan: Recommend continued IV antibiotics and infectious disease consulted for E. coli bacteremia. Repeat blood cultures pending at this time. Will discontinue Flagyl and monitor closely. Diet being advanced to full liquids per surgical recommendations. Patient would like to follow-up in the outpatient setting with her primary care provider Dr. Sierra Hanson prior to having surgery. Will need to monitor for clearance of bacteremia prior to discharge. Will repeat labs and continue to follow along with general surgery. Thank you for this consultation. The impression and plan of care has been dictated by Krysten Monson, Nurse Practitioner as directed. Dr. Sabino MD I have performed a history and examination and MDM of this patient, discussed the same with the dictator, and agree with the dictator's assessment and plan as written ,documented as a scribe. Based on total visit time, I have performed more than 50% of the visit. Objective - Vital Signs Vital signs: Vital Signs Temp 98 F 12/31/21 08:19 Pulse 60 12/31/21 08:19 Resp 14 12/31/21 08:19 BP 158/80 12/31/21 08:19 Pulse Ox 98 12/31/21 08:19 Intake & Output 12/30/21 12/31/21 12/31/21 18:59 06:59 18:59 Intake Total 1000 Balance 1000 Intake: Intake, IV Titration 1000 Amount Dextrose 5%-0.45% NaCl 1, 1000 000 ml @ 125 mls/hr IV . Q8H [facility] Rx#:[id number] Other: Voiding Method Toilet Toilet # Voids 3 - Labs CBC & Chem 7: 12/31/21 05:25 12/31/21 05:25 Labs: Abnormal Lab Results - Last 24 Hours (Table) 12/30/21 12/30/21 12/31/21 Range/Units 10:26 10:26 05:25 RBC 3.39 L 3.56 L (3.80-5.40) m/uL Hgb 10.6 L 10.8 L (11.4-16.0) gm/dL Hct 33.0 L 33.3 L (34.0-46.0) % MPV 8.8 L (9.5-12.2) fL Lymphocytes # 0.9 L (1.0-4.8) k/uL Chloride 109 H (98-107) mmol/L Calcium 8.2 L (8.4-10.2) mg/dL AST 97 H (14-36) U/L ALT 125 H (4-34) U/L Total Protein 5.9 L (6.3-8.2) g/dL Albumin 3.1 L (3.5-5.0) g/dL Amylase 179 H (30-110) U/L Lipase 2086 H (23-300) U/L Microbiology - Last 24 Hours (Table) 12/29/21 11:45 Blood Culture - Preliminary Blood No Growth after 24 hours 12/29/21 12:08 Blood Culture Gram Stain - Preliminary Blood Blood Culture - Preliminary Escherichia coli
--- NOTE | 2021-12-31 23:57 | P.CONS ---
History of Present Illness - Reason for Consult Consult date: 12/31/21 Bacteremia Requesting physician: Krysten Monson - Chief Complaint Abdominal pain 1 day - History of Present Illness Patient is a 76-year-old female presenting to the ER 2 days ago for evaluation of epigastric pain that started the night before presentation to the hospital patient was describing the pain to be more of a sharp in nature intensity is almost 7-8 out of 10 with some radiation to the right upper quadrant area patient on arrival to the ER did have multiple episodes of vomiting and denies having any diarrhea, patient on presentation to the hospital was afebrile and no fever has been recorded subsequently patient did have a normal white count with mild left shift AST ALT were elevated bilirubin was normal did have elevated amylase and lipase urine was negative blood cultures are now showing E. coli that has prompted this infectious disease consultation patient did have a ultrasound of the gallbladder small gallstone without convincing evidence of acute cholecystitis, patient is under care of general surgery and medical team, as of this afternoon the patient abdominal pain has much improved she has been tolerating a clear liquid diet denies having any chest pain or shortness of breath or cough Review of Systems Positive point has been mentioned in the HPI rest of the systems are negative Past Medical History Past Medical History: Cancer, Hypertension Additional Past Medical History / Comment(s): Tachycardia, skin cancer History of Any Multi-Drug Resistant Organisms: None Reported Past Surgical History: Hernia Repair, Tonsillectomy Additional Past Anesthesia/Blood Transfusion Reaction / Comm: irregular heart rate with general anesthestic Past Psychological History: No Psychological Hx Reported Smoking Status: Never smoker Past Alcohol Use History: None Reported Past Drug Use History: None Reported Medications and Allergies Home Medications Medication Instructions Recorded Confirmed Type Bone Op 1 tab PO DAILY 12/29/21 12/29/21 History Cholecalciferol [Vitamin D3 (25 25 mcg PO DAILY 12/29/21 12/29/21 History Mcg = 1000 Iu)] Flaxseed Oil 1,000 mg PO DAILY 12/29/21 12/29/21 History Garlic 100 mg PO DAILY 12/29/21 12/29/21 History Glucosamine HCl/Chondroitin Matos 1 cap PO DAILY 12/29/21 12/29/21 History [Glucosamine-Chondroitin Cap] L.acidoph,Paracasei, B.lactis 1 cap PO DAILY 12/29/21 12/29/21 History [Probiotic] [place]-3 Fatty Acids/Fish Oil [Fish 1 cap PO DAILY 12/29/21 12/29/21 History Oil 1,000 mg Softgel] Ubidecarenone [Co Q-10] 100 mg PO DAILY 12/29/21 12/29/21 History Zinc 50 mg PO DAILY 12/29/21 12/29/21 History Allergies Allergy/AdvReac Type Severity Reaction Status Date / Time acetaminophen [From Lortab] AdvReac Nausea & Verified 12/29/21 12:14 Vomiting ampicillin AdvReac Rash/Hives Verified 12/29/21 12:14 codeine AdvReac Nausea & Verified 12/29/21 12:14 Vomiting hydrocodone [From Lortab] AdvReac Nausea & Verified 12/29/21 12:14 Vomiting meperidine [From Demerol] AdvReac Nausea & Verified 12/29/21 12:14 Vomiting soap AdvReac Itching Verified 12/29/21 12:14 sulfamethoxazole AdvReac Rash/Hives Verified 12/29/21 12:14 [From Bactrim] trimethoprim [From Bactrim] AdvReac Rash/Hives Verified 12/29/21 12:14 Physical Exam Vitals: Vital Signs Temp Pulse Resp BP Pulse Ox 12/31/21 13:32 98.5 F 71 18 139/77 100 12/31/21 08:19 98 F 60 14 158/80 98 12/31/21 04:45 98.3 F 60 20 145/81 96 12/30/21 20:30 98.3 F 49 L 20 139/71 97 Intake and Output 12/31/21 12/31/21 12/31/21 06:59 14:59 22:59 Intake Total 1000 Balance 1000 Intake: Intake, IV Titration 1000 Amount Dextrose 5%-0.45% NaCl 1, 1000 000 ml @ 125 mls/hr IV . Q8H [facility] Rx#:[id number] Other: Voiding Method Toilet GENERAL DESCRIPTION: An elderly female up in the room, no distress. No tachypnea or accessory muscle of respiration use. HEENT: Shows Pallor , no scleral icterus. Oral mucous membrane is dry. No pharyngeal erythema or thrush NECK: Trachea central, no thyromegaly. LUNGS: Unlabored breathing. Clear to auscultation anteriorly. No wheeze or crackle. HEART: S1, S2, regular rate and rhythm. No loud murmur ABDOMEN: Soft, no tenderness , guarding or rigidity, no organomegaly EXTREMITIES: No edema of feet. SKIN: No rash, no masses palpable. NEUROLOGICAL: The patient is awake, alert, oriented x3, mood and affect normal. Results CBC & Chem 7: 12/31/21 05:25 12/31/21 05:25 Labs: Abnormal Lab Results - Last 24 Hours (Table) 12/31/21 12/31/21 Range/Units 05:25 05:25 RBC 3.56 L (4.10-5.20) X 10*6/uL Hgb 10.8 L (12.0-15.0) g/dL Hct 33.3 L (37.2-46.3) % MPV 8.8 L (9.5-12.2) fL Anion Gap 9.30 L (10.00-18.00) mmol/L BUN 8.5 L (9.0-27.0) mg/dL Glucose 118 H (70-110) mg/dL AST 59 H (13-35) U/L ALT 109 H (8-44) U/L Lipase 408 H (14-63) U/L Microbiology - Last 24 Hours (Table) 12/29/21 11:45 Blood Culture - Preliminary Blood No Growth after 48 hours 12/29/21 12:08 Blood Culture Gram Stain - Preliminary Blood Blood Culture - Preliminary Escherichia coli Assessment and Plan (1) Bacteremia Current Visit: Yes Status: Acute Code(s): R78.81 - BACTEREMIA SNOMED Code(s): 8605806 Plan: 1patient with an E. coli bacteremia in this patient presented to hospital with epigastric pain did have elevated amylase lipase and liver enzymes concern for gallstone pancreatitis with no evidence of acute cholecystitis on the ultrasound. 2patient to continue with the Rocephin 2 g daily while waiting for the sensitive to finalize to determine her discharge antibiotics 3gentle IV fluid We will follow on clinical condition and cultures to further adjust medication if needed Thank you for this consultation we will follow the patient along with you Time with Patient: Greater than 30
[2022-01-01] MEDS: DEXTROSE 5%-0.45% NACL 1,000 ML IV SCH ×3 (03:45→19:40)
[2022-01-01 09:37] LABS: Basophils # (A) 0.01 X 10*3/uL (0.00-0.10); Basophils % (A) 0.2 %; Eosinophils # (A) 0.05 X 10*3/uL (0.04-0.35); HCT 30.7 % (37.2-46.3); Immature Grans, Automated 0.2 %; Lymphocytes # (A) 1.27 X 10*3/uL (0.90-5.00); Lymphocytes % (A) 24.8 %; MCH 30.2 pg (27.0-32.0); MCHC 32.6 g/dL (32.0-37.0); MCV 92.7 fL (80.0-97.0); Mean Platelet Volume 8.8 fL (9.5-12.2); Monocytes # (A) 0.65 X 10*3/uL (0.20-1.00); Monocytes % (A) 12.7 %; NRBC Per 100 WBC 0 /100 WBCS (0.0-0.0); Neutrophils # (A) 3.14 X 10*3/uL (1.80-7.70); Neutrophils % (A) 61.1 %; Platelet Count 188 X 10*3/uL (140-440); RBC 3.31 X 10*6/uL (4.10-5.20); RDW 12.9 % (11.5-14.5); WBC 5.13 X 10*3/uL (4.50-10.00)
[2022-01-01 09:49] LABS: African American GFR (CKD) 100.5 (60.0-200.0); Albumin 3.5 g/dL (3.8-4.9); Albumin/Globulin Ratio 1.53 (1.60-3.17); BUN/Creat Ratio 7.79 Ratio (12.00-20.00); C Reactive Protein 3.1 mg/dL (0.00-0.80); Carbon Dioxide 22.2 mmol/L (20.0-27.5); Globulin 2.3 g/dL (1.6-3.3); Non-African American GFR(CKD) 86.7 (60.0-200.0); Potassium 3.6 mmol/L (3.5-5.5); Total Bilirubin 0.3 mg/dL (0.30-1.20); Total Protein 5.8 g/dL (6.2-8.2)
[2022-01-01] MEDS: HEPARIN SODIUM,PORCINE/PF 5,000 UNIT/0.5 ML SYRINGE SQ SCH ×2 (11:41→19:40)
[2022-01-01] MEDS: PANTOPRAZOLE 40 MG/10 ML VIAL IVP SCH (11:47)
--- NOTE | 2022-01-01 15:23 | P.PN ---
Subjective Progress Note Date: 01/01/22 CHIEF COMPLAINT: Epigastric abdominal pain HISTORY OF PRESENT ILLNESS: Patient admitted with gallstone pancreatitis. She now has evidence of bacteremia with blood cultures positive for E. coli. She's been seen evaluated by infectious disease. Repeat blood cultures are pending. Patient continues report improvement in her abdominal pain. Denies any nausea vomiting. She is tolerating her full liquid diet. Afebrile. WBC is 5.13 hemoglobin 10 platelets 188 sodium 140 potassiums 3.6 creatinine 0.6 LFTs continued to trend downwards with AST normalized at 33 and ALT 72 alk phos 89. Lipase pending. Lipase from yesterday was 408. Patient was seen evaluated by infectious disease regarding the bacteremia. PHYSICAL EXAM: VITAL SIGNS: Reviewed. GENERAL: Well-developed in no acute distress. HEENT: No sclera icterus. Extraocular movements grossly intact. Moist buccal mucosa. Head is atraumatic, normocephalic. ABDOMEN: Soft. Nondistended. Minimal tenderness with palpation of the epigastric and right upper quadrant area NEUROLOGIC: Alert and oriented. Cranial nerves II through XII grossly intact. ASSESSMENT: 1. Acute Gallstone pancreatitis 2. Cholelithiasis 3. Bacteremia PLAN: -Continue conservative management -At this time patient wants to hold off on any surgery -Continue full liquids at this time -Continue to monitor LFTs and lipase -Continue IV fluids -Continue antibiotics Physician Glaucoma Specialist note has been reviewed by physician. Signing provider agrees with the documented findings, assessment, and plan of care. Objective - Vital Signs Vital signs: Vital Signs Temp 98.5 F 01/01/22 12:10 Pulse 60 01/01/22 12:10 Resp 16 01/01/22 12:10 BP 159/82 01/01/22 12:10 Pulse Ox 100 01/01/22 12:10 Intake & Output 12/31/21 01/01/22 01/01/22 18:59 06:59 18:59 Intake Total 200 Balance 200 Intake: Oral 200 Other: Voiding Method Toilet Toilet Toilet # Voids 3 1 - Labs CBC & Chem 7: 01/01/22 05:17 01/01/22 05:17 Labs: Abnormal Lab Results - Last 24 Hours (Table) 12/31/21 01/01/22 01/01/22 Range/Units 05:25 05:17 05:17 RBC 3.31 L (4.10-5.20) X 10*6/uL Hgb 10.0 L (12.0-15.0) g/dL Hct 30.7 L (37.2-46.3) % MPV 8.8 L (9.5-12.2) fL BUN 5.0 L (9.0-27.0) mg/dL BUN/Creatinine Ratio 7.79 L (12.00-20.00) Ratio Glucose 118 H (70-110) mg/dL ALT 72 H (8-44) U/L C-Reactive Protein 3.10 H (0.00-0.80) mg/dL Total Protein 5.8 L (6.2-8.2) g/dL Albumin 3.5 L (3.8-4.9) g/dL Albumin/Globulin Ratio 1.53 L (1.60-3.17) g/dL Lipase 408 H (14-63) U/L Microbiology - Last 24 Hours (Table) 12/29/21 11:45 Blood Culture - Preliminary Blood No Growth after 48 hours
--- NOTE | 2022-01-01 19:13 | P.PN ---
Subjective Progress Note Date: 01/01/22 - Reason for Consult E. coli bacteremia - History of Present Illness Patient is an 76-year-old female came with sharp severe epigastric abdominal pain found to have an keratitis patient does have gallstones patient appears to have gallstone pancreatitis patient does have elevated AST and ALT which are coming down. Patient is now found to be bacteremic. Patient is already on Rocephin. Patient has E. coli. Will repeat blood cultures today and tomorrow. Patient is admitted to general surgery. Patient is presently hemodynamically stable. 12/31/2021 Patient is seen and evaluated in follow-up today and reports were abdominal pain improving. Patient was tentatively scheduled for possible laparoscopic cholecystectomy tomorrow although would like to follow-up in the outpatient setting. Patient is afebrile and WBC is within normal limits at 5.73. Hemoglobin is 10.8. BMP within normal limits. Lipase trending down and is currently 408 and amylase within normal limits at 103. Patient continues with bacteremia of E. coli and currently maintained on Rocephin and will consult infectious disease and repeat blood cultures. Patient is continued on IV antibiotics in the form of ceftriaxone and will discontinue Flagyl. Awaiting for clearance of bacteremia. Denies any chest pain, shortness of breath, or palpitations. Patient is afebrile. Patient diet being advanced to full liquids and will monitor for tolerance. 01/01/2022 Patient is seen in follow up this morning and continues to walk the halls multiple times throughout the day. Patient reports to some diffuse RUQ pain. Reports to tolerating full liquid diet and having bowel movements. Patient is continued on IV ceftriaxone with ID following. Awaiting finalized blood cultures to determine clearance of bacteremia. Patient denies chest pain or shortness of breath. Patient is afebrile. No nausea or vomiting noted. Review of systems: Constitutional: No reports of fatigue, fever, or chills Cardiovascular: No reports of chest pain or palpitations Respiratory: No reports of shortness of breath or cough GI: No reports of nausea, vomiting, or diarrhea, reports small pellet like stools : No reports of dysuria or retention Neurovascular: No reports of weakness or numbness All medications have been reviewed Active Medications Heparin Sodium (Porcine) (Heparin Sodium,Porcine/Pf 5,000 Unit/0.5 Ml Syringe) 5,000 unit SQ Q12HR [facility] Last Admin: 01/01/22 11:41 Dose: Not Given Documented by: Hydromorphone HCl (Hydromorphone 0.5 Mg/0.5 Ml Syringe) 0.5 mg IVP Q3HR PRN PRN Reason: Moderate Pain Ceftriaxone Sodium 2 gm/ (Sodium Chloride) 50 mls @ 100 mls/hr IVPB Q24HR [facility]; Protocol Last Admin: 01/01/22 11:48 Dose: 100 mls/hr Documented by: Dextrose/Sodium Chloride (Dextrose 5%-1/2ns Iv Soln) 1,000 mls @ 125 mls/hr IV .Q8H [facility] Last Admin: 01/01/22 07:42 Dose: 125 mls/hr Documented by: Naloxone HCl (Naloxone 0.4 Mg/Ml 1 Ml Vial) 0.2 mg IV Q2M PRN PRN Reason: Opioid Reversal Ondansetron HCl (Ondansetron 4 Mg/2 Ml Vial) 4 mg IVP Q8HR PRN PRN Reason: Nausea And Vomiting Pantoprazole Sodium (Pantoprazole 40 Mg/10 Ml Vial) 40 mg IVP DAILY [facility] Last Admin: 01/01/22 11:47 Dose: 40 mg Documented by: PHYSICAL EXAMINATION: GENERAL: The patient is alert and oriented x3, not in any acute distress. Well developed, well nourished. HEENT: Pupils are round and equally reacting to light. EOMI. No scleral icterus. No conjunctival pallor. Normocephalic, atraumatic. No pharyngeal erythema. No thyromegaly. CARDIOVASCULAR: S1 and S2 present. No murmurs, rubs, or gallops. PULMONARY: Chest is clear to auscultation, no wheezing or crackles. ABDOMEN: Soft, nontender, nondistended, normoactive bowel sounds. No palpable o rganomegaly. MUSCULOSKELETAL: No joint swelling or deformity. EXTREMITIES: No cyanosis, clubbing, or pedal edema. NEUROLOGICAL: Gross neurological examination did not reveal any focal deficits. SKIN: No rashes. Assessment and plan -Sepsis and bacteremia secondary to cholelithiasis and possibility of cholecystitis and patient has E. coli bacteremia continue with Rocephin, repeat blood cultures are negative thus far and ID following. Patient to continue on IV ceftriaxone -Gallstone pancreatitis, patient tolerating full liquid diet and advancing per surgery recommendations. Patient reports to diffuse RUQ pain -Cholecystitis -Elevated liver enzymes possibly of choledocholithiasis is low as liver enzymes are coming down. -Hypertension -DVT prophylaxis: Subcutaneous heparin -GI prophylaxis -Full code Plan: Recommend continued IV antibiotics and infectious disease following. Repeat b lood cultures negative for 24 hours and awaiting finalized. Patient continued on IV ceftriaxone . Diet being advanced to full liquids per surgical recommendations. Patient would like to follow-up in the outpatient setting with her primary care provider Dr. Sierra Hanson prior to having surgery. Will need to monitor for clearance of bacteremia prior to discharge. Will repeat labs and continue to follow along with general surgery. Thank you for this consultation. The impression and plan of care has been dictated by Krysten Monson, Nurse Practitioner as directed. Dr. Sabino MD I have performed a history and examination and MDM of this patient, discussed the same with the dictator, and agree with the dictator's assessment and plan as written ,documented as a scribe. Based on total visit time, I have performed more than 50% of the visit. Objective - Vital Signs Vital signs: Vital Signs Temp 98.6 F 01/01/22 07:45 Pulse 72 01/01/22 07:45 Resp 16 01/01/22 07:45 BP 134/75 01/01/22 07:45 Pulse Ox 97 01/01/22 07:45 Intake & Output 12/31/21 01/01/22 01/01/22 18:59 06:59 18:59 Intake Total 200 Balance 200 Intake: Oral 200 Other: Voiding Method Toilet Toilet Toilet # Voids 3 1 - Labs CBC & Chem 7: 01/01/22 05:17 01/01/22 05:17 Labs: Abnormal Lab Results - Last 24 Hours (Table) 12/31/21 01/01/22 Range/Units 05:25 05:17 RBC 3.31 L (4.10-5.20) X 10*6/uL Hgb 10.0 L (12.0-15.0) g/dL Hct 30.7 L (37.2-46.3) % MPV 8.8 L (9.5-12.2) fL Anion Gap 9.30 L (10.00-18.00) mmol/L BUN 8.5 L (9.0-27.0) mg/dL Glucose 118 H (70-110) mg/dL AST 59 H (13-35) U/L ALT 109 H (8-44) U/L Lipase 408 H (14-63) U/L Microbiology - Last 24 Hours (Table) 12/29/21 11:45 Blood Culture - Preliminary Blood No Growth after 48 hours
--- NOTE | 2022-01-01 22:22 | P.PN ---
Subjective Progress Note Date: 01/01/22 Principal diagnosis: E. coli bacteremia Patient is a 76-year-old female presenting to the hospital with acute epigastric pain in this patient did have elevated amylase and lipase concerning for gallstone pancreatitis however ultrasound was negative for any features sugg estive of cholecystitis and CT was not done blood cultures subsequently were positive for E. coli. On today's evaluation that is 01/02/2020 patient denies having any fever or any chills, the patient abdominal pain has resolved denies having any nausea no vomiting no chest pain shortness of breath or cough and no diarrhea Objective - Vital Signs Vital signs: Vital Signs Temp 98.6 F 01/01/22 07:45 Pulse 72 01/01/22 07:45 Resp 16 01/01/22 07:45 BP 134/75 01/01/22 07:45 Pulse Ox 97 01/01/22 07:45 Intake & Output 12/31/21 01/01/22 01/01/22 18:59 06:59 18:59 Intake Total 200 Balance 200 Intake: Oral 200 Other: Voiding Method Toilet Toilet Toilet # Voids 3 1 - Exam GENERAL DESCRIPTION: An elderly female lying in bed in no distress RESPIRATORY SYSTEM: Unlabored breathing , decreased breath sounds at bases HEART: S1 S2 regular rate and rhythm , ABDOMEN: Soft , no tenderness EXTREMITIES: No edema feet - Labs CBC & Chem 7: 01/01/22 05:17 01/01/22 05:17 Labs: Abnormal Lab Results - Last 24 Hours (Table) 12/31/21 01/01/22 01/01/22 Range/Units 05:25 05:17 05:17 RBC 3.31 L (4.10-5.20) X 10*6/uL Hgb 10.0 L (12.0-15.0) g/dL Hct 30.7 L (37.2-46.3) % MPV 8.8 L (9.5-12.2) fL BUN 5.0 L (9.0-27.0) mg/dL BUN/Creatinine Ratio 7.79 L (12.00-20.00) Ratio Glucose 118 H (70-110) mg/dL ALT 72 H (8-44) U/L C-Reactive Protein 3.10 H (0.00-0.80) mg/dL Total Protein 5.8 L (6.2-8.2) g/dL Albumin 3.5 L (3.8-4.9) g/dL Albumin/Globulin Ratio 1.53 L (1.60-3.17) g/dL Lipase 408 H (14-63) U/L Microbiology - Last 24 Hours (Table) 12/29/21 11:45 Blood Culture - Preliminary Blood No Growth after 48 hours Assessment and Plan (1) Bacteremia Current Visit: Yes Status: Acute Code(s): R78.81 - BACTEREMIA SNOMED Code (s): 8579147 Plan: 1patient with an E. coli bacteremia in this patient presented to hospital with epigastric pain did have elevated amylase lipase and liver enzymes concern for gallstone pancreatitis with no evidence of acute cholecystitis on the ultrasound . 2patient clinically improving with the Rocephin 2 g daily and will be continued while waiting for the sensitive to finalize to determine her discharge antibiotics 3repeat blood culture so far negative Time with Patient: Less than 30
[2022-01-02] MEDS: DEXTROSE 5%-0.45% NACL 1,000 ML IV SCH ×2 (01:01→05:52)
[2022-01-02] MEDS ORDERED: DEXAMETHASONE SOD PHOSPHATE 4 MG/ML 1 ML VIAL IV ONE (07:20)
[2022-01-02] MEDS ORDERED: LACTATED RINGERS 1,000 ML IV SCH (07:20)
[2022-01-02] MEDS ORDERED: HYDROmorphone 0.5 MG/0.5 ML SYRINGE IVP PRN (07:20)
[2022-01-02] MEDS ORDERED: ONDANSETRON 4 MG/2 ML VIAL IVP ONE (07:20)
[2022-01-02 08:08] LABS: HGB 12.1 gm/dL (11.4-16.0); MCH 31.6 pg (25.0-35.0); MCHC 33.6 g/dL (31.0-37.0); Mean Platelet Volume 7.1; Platelet Count 300 k/uL (150-450); RBC 3.83 m/uL (3.80-5.40); RDW 13.3 % (11.5-15.5); WBC 4.5 k/uL (3.8-10.6)
[2022-01-02 08:39] LABS: ALT 67 U/L (4-34); AST 43 U/L (14-36); African American GFR (CKD) >90 (>60 ml/min/1.73 sqM); Albumin 4.1 g/dL (3.5-5.0); Albumin/Globulin Ratio 1.2; Alkaline Phosphatase 105 U/L (38-126); Anion Gap 8 mmol/L; Blood Urea Nitrogen 5 mg/dL (7-17); Calcium 9.2 mg/dL (8.4-10.2); Carbon Dioxide 23 mmol/L (22-30); Chloride 109 mmol/L (98-107); Globulin 3.3 g/dL; Glucose 118 mg/dL (74-99); Lipase 288 U/L (23-300); Non-African American GFR(CKD) 86 (>60 ml/min/1.73 sqM); Potassium 3.6 mmol/L (3.5-5.1); Sodium 140 mmol/L (137-145); Total Bilirubin 0.6 mg/dL (0.2-1.3); Total Protein 7.4 g/dL (6.3-8.2)
[2022-01-02 08:48] VITALS: TEMP 98.1
[2022-01-02] MEDS: HEPARIN SODIUM,PORCINE/PF 5,000 UNIT/0.5 ML SYRINGE SQ SCH (09:21)
[2022-01-02] MEDS: PANTOPRAZOLE 40 MG/10 ML VIAL IVP SCH (09:51)
--- NOTE | 2022-01-02 12:18 | P.PN ---
Subjective Patient is an 76-year-old female came with sharp severe epigastric abdominal pain found to have an keratitis patient does have gallstones patient appears to have gallstone pancreatitis patient does have elevated AST and ALT which are coming down. Patient is now found to be bacteremic. Patient is already on Rocephin. Patient has E. coli. Will repeat blood cultures today and tomorrow. Patient is admitted to general surgery. Patient is presently hemodynamically stable. 12/31/2021 Patient is seen and evaluated in follow-up today and reports were abdominal pain improving. Patient was tentatively scheduled for possible laparoscopic angelina cystectomy tomorrow although would like to follow-up in the outpatient setting. Patient is afebrile and WBC is within normal limits at 5.73. Hemoglobin is 10.8. BMP within normal limits. Lipase trending down and is currently 408 and amylase within normal limits at 103. Patient continues with bacteremia of E. coli and currently maintained on Rocephin and will consult infectious disease and repeat blood cultures. Patient is continued on IV antibiotics in the form of ceftriaxone and will discontinue Flagyl. Awaiting for clearance of bacteremia. Denies any chest pain, shortness of breath, or palpitations. Patient is afebrile. Patient diet being advanced to full liquids and will monitor for tolerance. 01/01/2022 Patient is seen in follow up this morning and continues to walk the halls multiple times throughout the day. Patient reports to some diffuse RUQ pain. Reports to tolerating full liquid diet and having bowel movements. Patient is continued on IV ceftriaxone with ID following. Awaiting finalized blood cultures to determine clearance of bacteremia. Patient denies chest pain or shortness of breath. Patient is afebrile. No nausea or vomiting noted. Subjective: 01/02/2022 Patient is fully awake and oriented, walking in the hallway with no difficulty, tolerating liquid diet with minimal RUQ tenderness with no significant pain. Patient feels much better and she thinks she can go home soon She still on liquid diet for surgery team. Repeat blood culture is negative a fter patient placed on ceftriaxone for E. coli bacteremia on admission. Possible discharge in 24-48 Objective - Vital Signs Vital signs: Vital Signs Temp 98.1 F 01/02/22 08:44 Pulse 76 01/02/22 09:04 Resp 20 01/02/22 08:44 BP 136/82 01/02/22 08:44 Pulse Ox 95 01/02/22 08:44 Intake & Output 01/01/22 01/02/22 01/02/22 18:59 06:59 18:59 Intake Total 1490 Balance 1490 Intake: Intake, IV Titration 900 Amount Dextrose 5%-0.45% NaCl 1, 900 000 ml @ 125 mls/hr IV . Q8H [facility] Rx#:[id number] Oral 590 Other: Voiding Method Toilet Toilet # Voids 2 # Bowel Movements 6 - Exam GENERAL: The patient is alert and oriented x3, not in any acute distress. Well developed, well nourished. HEENT: Pupils are round and equally reacting to light. EOMI. No scleral icterus. No conjunctival pallor. Normocephalic, atraumatic. No pharyngeal erythema. No thyromegaly. CARDIOVASCULAR: S1 and S2 present. No murmurs, rubs, or gallops. PULMONARY: Chest is clear to auscultation, no wheezing or crackles. ABDOMEN: Soft, nontender, nondistended, normoactive bowel sounds. No palpable organomegaly. MUSCULOSKELETAL: No joint swelling or deformity. EXTREMITIES: No cyanosis, clubbing, or pedal edema. NEUROLOGICAL: Gross neurological examination did not reveal any focal deficits. SKIN: No rashes. no petechiae. - Labs CBC & Chem 7: 01/02/22 07:18 01/02/22 07:18 Labs: Abnormal Lab Results - Last 24 Hours (Table) 01/01/22 01/02/22 Range/Units 05:17 07:18 Chloride 109 H (98-107) mmol/L BUN 5 L (7-17) mg/dL Glucose 118 H (74-99) mg/dL AST 43 H (14-36) U/L ALT 67 H (4-34) U/L Lipase 132 H (14-63) U/L Microbiology - Last 24 Hours (Table) 12/29/21 12:08 Blood Culture Gram Stain - Final Blood Blood Culture - Final Escherichia coli 12/31/21 14:07 Blood Culture - Preliminary Blood No Growth after 24 hours 12/29/21 11:45 Blood Culture - Preliminary Blood No Growth after 72 hours Assessment and Plan Assessment: -Sepsis and bacteremia secondary to cholelithiasis and possibility of cholecystitis and patient has E. coli bacteremia continue with Rocephin, repeat blood cultures are negative thus far and ID following. Patient to continue on IV ceftriaxone -Gallstone pancreatitis, patient tolerating full liquid diet and advancing per surgery recommendations. Patient reports to diffuse RUQ pain -Cholecystitis -Elevated liver enzymes possibly of choledocholithiasis is low as liver enzymes are coming down. -Hypertension -DVT prophylaxis: Subcutaneous heparin -GI prophylaxis -Full code Plan: This is a pleasant 76 years old female with gallstone pancreatitis and E. coli bacteremia Continue with ceftriaxone, ID team on the case. Follow-up repeat blood culture final results Surgery team on the case, currently on liquid diet Labs and medication were reviewed.. Continue same treatment. Continue with symptomatic treatment. Resume home medication. Monitor lytes and vitals. DVT and GI prophylaxis. Further recommendationsas per clinical course of the patient DVT prophylaxis: Subcutaneous heparin GI Prophylaxis: Ppi
--- NOTE | 2022-01-02 12:28 | P.DS ---
Providers Date of admission: 12/29/21 11:34 Expected date of discharge: 01/02/22 Attending physician: Jose Maria Seo Consults: 12/29/21 11:39 Consult Physician Urgent Consulting Provider: Quinten Huerta Consult Reason/Comments: Medicine consult Do you want consulting provider notified?: Yes 12/31/21 13:45 Consult Physician Urgent Consulting Provider: Cash Green Consult Reason/Comments: positive blood cultures, ecoli Do you want consulting provider notified?: Yes Primary care physician: Sierra Hanson Hospital Course: Discharge diagnosis 1. Acute Gallstone pancreatitis 2. Cholelithiasis 3. E. coli Bacteremia likely due to patient's gallbladder Hospital course This is a 76-year-old female who presented to the hospital for complaints of abdominal pain. Patient reports the pain started in the epigastric area and radiated to the right upper quadrant and around to the back that started yesterday. She was having nausea and vomiting. The pain became very severe and had to call EMS. Patient does have a history of gallstones. Abdominal Ultrasound shows small gallstones without convincing ultrasound evidence for acute cholecystitis. Patient had elevated lipase and LFTs. Patient's lipase has normalized. LFTs are trending downward. She denies any abdominal pain she is tolerating diet. Denies any nausea or vomiting. Patient also developed bact eremia with E. coli. She was seen and evaluated by infectious disease they're recommending Cipro for 10 more days. Patient is afebrile. She's had improvement in her symptoms. She is stable for discharge. She'll follow-up with surgeon in office for further discussion regarding laparoscopic cholecystectomy. Physician Ammonia Distiller note has been reviewed by physician. Signing provider agrees with the documented findings, assessment, and plan of care. Patient Condition at Discharge: Stable Plan - Discharge Summary Discharge Rx Participant: Yes New Discharge Prescriptions: New Ciprofloxacin HCl [Cipro] 500 mg PO BID 10 Days #20 tab Continue Flaxseed Oil 1,000 mg PO DAILY [place]-3 Fatty Acids/Fish Oil [Fish Oil 1,000 mg Softgel] 1 cap PO DAILY Zinc 50 mg PO DAILY Garlic 100 mg PO DAILY Cholecalciferol [Vitamin D3 (25 Mcg = 1000 Iu)] 25 mcg PO DAILY Ubidecarenone [Co Q-10] 100 mg PO DAILY L.acidoph,Paracasei, B.lactis [Probiotic] 1 cap PO DAILY Glucosamine HCl/Chondroitin Matos [Glucosamine-Chondroitin Cap] 1 cap PO DAILY Bone Op 1 tab PO DAILY Discharge Medication List Bone Op 1 tab PO DAILY 12/29/21 [History] Cholecalciferol [Vitamin D3 (25 Mcg = 1000 Iu)] 25 mcg PO DAILY 12/29/21 [History] Flaxseed Oil 1,000 mg PO DAILY 12/29/21 [History] Garlic 100 mg PO DAILY 12/29/21 [History] Glucosamine HCl/Chondroitin Matos [Glucosamine-Chondroitin Cap] 1 cap PO DAILY 12/29/21 [History] L.acidoph,Paracasei, B.lactis [Probiotic] 1 cap PO DAILY 12/29/21 [History] [place]-3 Fatty Acids/Fish Oil [Fish Oil 1,000 mg Softgel] 1 cap PO DAILY 12/29/21 [History] Ubidecarenone [Co Q-10] 100 mg PO DAILY 12/29/21 [History] Zinc 50 mg PO DAILY 12/29/21 [History] Ciprofloxacin HCl [Cipro] 500 mg PO BID 10 Days #20 tab 01/02/22 [Rx] Follow up Appointment(s)/Referral(s): Sierra Hanson MD [Primary Care Provider] - 1-2 days Jose Maria Soe MD [STAFF PHYSICIAN] - 1 Week Activity/Diet/Wound Care/Special Instructions: low fat diet Discharge Disposition: HOME SELF-CARE
[2022-01-02 12:51] VITALS: BP 134/80; PULSE 71; RESP 16
== END 2022-01-02 14:13 | disposition home or self-care (01) | DRG 438 ==
LOC: EC 09:07 → 5NMEDONC 11:34
PROVIDERS: ADMIT Surgery; ATTEND Surgery
DX: K85.10 Biliary acute pancreatitis without necrosis or infection (principal); A41.51 Sepsis due to Escherichia coli [E. coli]; K80.10 Calculus of gallbladder with chronic cholecystitis without obstruction; I10 Essential (primary) hypertension; K40.90 Unilateral inguinal hernia, without obstruction or gangrene, not specified as recurrent; Z85.828 Personal history of other malignant neoplasm of skin; Z86.79 Personal history of other diseases of the circulatory system; Z98.890 Other specified postprocedural states; Z88.6 Allergy status to analgesic agent; Z88.1 Allergy status to other antibiotic agents; Z88.5 Allergy status to narcotic agent; Z88.2 Allergy status to sulfonamides; Z88.8 Allergy status to other drugs, medicaments and biological substances
CPT/HCPCS: 36415; 76705; 80053; 81001; 82150; 83605; 83690; 84484; 85025; 85027; 86140; 87040; 87077; 87186; 93005; 96361; 96365; 96368; 96375; 99285

== ENCOUNTER → 2022-04-01 | Outpatient (CLI) | payer MEDICARE ==
--- NOTE | 2022-04-02 07:51 | MM ---
Reason for Exam: Screening (asymptomatic). Last mammogram was performed 1 year(s) and 3 month(s) ago. Patient History: Menarche at age 13. First Full-Term at age 24. Postmenopausal. Other cancer. Sister had breast cancer, age 59. Mother had breast cancer, age 80. Sister had breast cancer at or over age 50. Risk Values: Lisa 5 year model risk: 7.1%. NCI Lifetime model risk: 13.9%. Prior Study Comparison: 11/13/2016 Bilateral Screening Mammogram, [facility]. 03/10/2018 Bilateral Screening Mammogram, [facility]. 01/08/2021 Bilateral Screening Mammogram, [facility]. Tissue Density: The breast tissue is extremely dense which could obscure a lesion on mammography. Findings: Analyzed By CAD. There is no suspicious group of microcalcifications or new suspicious mass in either breast. Overall Assessment: Negative, BI-RAD 1 Management: Screening Mammogram of both breasts in 1 year. A clinical breast exam by your physician is recommended on an annual basis and results should be correlated with mammographic findings. Electronically signed and approved by: Jamari Tamayo M.D. Radiologis
== END | disposition home or self-care (01) ==
LOC: RADMAMWWP 09:55
PROVIDERS: ATTEND Family Medicine
DX: Z12.31 Encounter for screening mammogram for malignant neoplasm of breast (principal)
CPT/HCPCS: 77063; 77067

== ENCOUNTER → 2023-06-09 | Outpatient (CLI) | payer MEDICARE ==
--- NOTE | 2023-06-11 00:31 | MM ---
Reason for Exam: Screening (asymptomatic). Last mammogram was performed 1 year(s) and 2 month(s) ago. Patient History: Menarche at age 13. First Full-Term at age 24. Postmenopausal. Patient has history of breast feeding. Sister had breast cancer, age 59. Mother had breast cancer, age 80. Sister had breast cancer at or over age 50. Risk Values: Lisa 5 year model risk: 7.0%. NCI Lifetime model risk: 13.0%. Prior Study Comparison: 03/10/2018 Bilateral Screening Mammogram, [facility]. 01/08/2021 Bilateral Screening Mammogram, [facility]. 04/01/2022 Bilateral MG 3D screening mammo w/cad, [facility]. Tissue Density: The breast tissue is heterogeneously dense. This may lower the sensitivity of mammography. Findings: Analyzed By CAD. There is no suspicious group of microcalcifications or new suspicious mass in either breast. Overall Assessment: Negative, BI-RAD 1 Management: Screening Mammogram of both breasts in 1 year. See note below in regards to patient's increased 5 year Lisa score. Patient should continue monthly self-breast exams. A clinical breast exam by your physician is recommended on an annual basis. This exam should not preclude additional follow-up of suspicious palpable abnormalities. Note on Lisa scores and lifetime risk: 1. A Lisa score greater than 3% is considered moderate risk. If this is the case, consider specialist referral to assess eligibility for a risk reducing agent. 2. If overall lifetime risk for the development of breast cancer is 20% or higher, the patient may qualify for future screening with alternating mammogram and breast MRI. Electronically signed and approved by: Evan Diamond M.D. Radiologist
== END | disposition home or self-care (01) ==
LOC: RADMAMWWP 07:33
PROVIDERS: ATTEND Family Medicine
DX: Z12.31 Encounter for screening mammogram for malignant neoplasm of breast (principal); Z78.0 Asymptomatic menopausal state; Z80.3 Family history of malignant neoplasm of breast
CPT/HCPCS: 77063; 77067

== ENCOUNTER → 2024-07-05 | Outpatient (CLI) | payer MEDICARE ==
--- NOTE | 2024-07-11 12:45 | MM ---
Reason for Exam: Screening (asymptomatic). Last mammogram was performed 1 year(s) and 1 month(s) ago. Patient History: Menarche at age 13. First Full-Term at age 24. Postmenopausal. Patient has history of breast feeding. Sister had breast cancer, age 59. Mother had breast cancer, age 80. Sister had breast cancer at or over age 50. Risk Values: Lisa 5 year model risk: 6.9%. NCI Lifetime model risk: 12.1%. Prior Study Comparison: 01/08/2021 Bilateral Screening Mammogram, [facility]. 04/01/2022 Bilateral MG 3D screening mammo w/cad, [facility]. 06/09/2023 Bilateral MG 3D screening mammo w/cad, [facility]. Tissue Density: The breasts are heterogeneously dense, which may obscure small masses. Findings: Analyzed By CAD. Right breast: There is no suspicious group of microcalcifications or new suspicious mass. Left breast: There is no suspicious group of microcalcifications or new suspicious mass. Overall Assessment: Negative, BI-RAD 1 Management: Screening Mammogram of both breasts in [address] [facility] will attempt to contact patient to return for supplemental views and ultrasound if indicated. Patient should continue monthly self-breast exams. A clinical breast exam by your physician is recommended on an annual basis. This exam should not preclude additional follow-up of suspicious palpable abnormalities. Note on Lisa scores and lifetime risk: 1. A Lisa score greater than 3% is considered moderate risk. If this is the case, consider specialist referral to assess eligibility for a risk reducing agent. 2. If overall lifetime risk for the development of breast cancer is 20% or higher, the patient may qualify for future screening with alternating mammogram and breast MRI. [facility], , 07/11/2024 12:42 PM. Electronically signed and approved by: Cristian Bautista DO
== END | disposition home or self-care (01) ==
LOC: RADMAMWWP 08:36
PROVIDERS: ATTEND Family Medicine
DX: Z12.31 Encounter for screening mammogram for malignant neoplasm of breast
CPT/HCPCS: 77063; 77067

== ENCOUNTER → 2024-07-05 | Outpatient (CLI) | payer MEDICARE ==
--- NOTE | 2024-07-11 21:26 | BD ---
EXAMINATION TYPE: Axial Bone Density DATE OF EXAM: 07/05/2024 CLINICAL HISTORY: 78 years old Female. ICD-10 CODE: N95.1 Height: 64.5 Weight: 149 FRAX RISK QUESTIONS: Family History (Parent hip fracture): no History of Fracture in Adulthood: no Secondary Osteoporosis: no RISK FACTORS HISTORY OF: Surgery to Spine/Hip(right/left)/Wrist (right/left): no MEDICATIONS: Thyroid Medications: no Osteoporosis Medications: no EXAM MEASUREMENTS: Bone mineral densitometry was performed using the [employer]. Bone mineral density as measured about the Lumbar spine is: ----- L1-L4(G/cm2): 0.916 T Score Values are as follows: ----- L1: -2.9 ----- L2: -2.1 ----- L3: -1.5 ----- L4: -2.3 ----- L1-L4: -2.2 Z Score Values are as follows: ----- L1: -1.2 ----- L2: -0.3 ----- L3: 0.2 ----- L4: -0.6 ----- L1-L4: -0.4 Bone mineral density has: Decreased -1.7% since study of: 01/18/2021 Bone mineral density about the R hip (g/cm2): 0.721 Bone mineral density about the L hip (g/cm2): 0.721 T Score values are as follows: -----R Neck: -2.8 -----L Neck: -2.7 -----R Total: -2.3 -----L Total: -2.3 Z Score values are as follows: -----R Neck: -0.7 -----L Neck: -0.7 -----R Total: -0.4 -----L Total: -0.4 Bone mineral density has: Decreased -0.6% since study of: 01/18/2021 FRAX%s: The graph provided illustrates a 22.4% chance for a major osteoporotic fx and a 8.7% chance f or the hips probability for fx in 10 years time. IMPRESSION: Osteoporosis (T Score less than -2.5). There is increased fracture risk and therapy is usually indicated based on age. Re-Screen 1-2 years. NOTE: T-SCORE=SD OF THE YOUNG ADULT MEAN. [facility], , 07/11/2024 9:24 PM
== END | disposition home or self-care (01) ==
LOC: RADBDWWP 08:40
PROVIDERS: ATTEND Family Medicine
DX: N95.1 Menopausal and female climacteric states
CPT/HCPCS: 77080